=== PATIENT | female | born 1985 | race Two or more races ===

== ENCOUNTER → 2020-08-12 12:42 | Outpatient (BNVA) | payer OTHER, SELFPAY | PROVIDERS: PCP Nurse Practitioner; Visit Provider Surgery | DX: E66.01 Morbid (severe) obesity due to excess calories (principal); Z68.42 Body mass index [BMI] 45.0-49.9, adult | CPT/HCPCS: 99202 ==

== ENCOUNTER → 2020-08-29 08:21 | Outpatient (BNVA) | payer OTHER, SELFPAY | PROVIDERS: PCP Nurse Practitioner; Visit Provider Surgery | DX: E66.01 Morbid (severe) obesity due to excess calories (principal); Z68.42 Body mass index [BMI] 45.0-49.9, adult | CPT/HCPCS: 99212 ==

== ENCOUNTER 2020-09-08 10:36 | Outpatient (REF) | payer OTHER, SELFPAY ==
--- NOTE | ~2020-09-08 | XR_ITS ---
EXAMINATION: XR CHEST CLINICAL INFORMATION: Shortness of breath. COMPARISON: None TECHNIQUE: 2 views of the chest were obtained. FINDINGS: No significant abnormality is noted involving the heart, lungs, mediastinum, bony thorax or soft tissues. XR/XR chest 2V IMPRESSION: No acute cardiopulmonary process.
--- NOTE | 2020-09-08 11:04 | ECG_ITS ---
Test Reason : SOB Blood Pressure : / mmHG Vent. Rate : 066 BPM Atrial Rate : 066 BPM P-R Int : 136 ms QRS Dur : 084 ms QT Int : 390 ms P-R-T Axes : 004 031 -08 degrees QTc Int : 408 ms Normal sinus rhythm Normal ECG No previous ECGs available Referred By: Jesenia Chavarria Electronically Signed By:Radames Burnett
[2020-09-08 12:11] LABS: MANUAL DIFF FLAG SCAN; Monocytes Absolute Auto 0.6 X10*3/uL (0.1-1.2); SCAN SMEAR FLAG 1
[2020-09-08 12:13] LABS: Basophils Absolute Auto 0.1 X10*3/uL (0.0-0.2); Basophils Percent Auto 0.5 % (0-2); Eosinophils Absolute Auto 0.2 X10*3/uL (0.0-0.4); Eosinophils Percent Auto 2.3 % (0-4); Hematocrit 38.5 % (37-47); Hemoglobin 12.5 g/dl (12.0-16.0); Imm Gran Abs Auto 0.03 X10*3/uL (0.00-0.03); Imm Gran Pct Auto 0.3 % (0.0-0.4); Lymphocytes Percent Auto 20.2 % (20-40); Mean Corpuscular HGB Conc 32.5 g/dl (31.0-35.0); Mean Corpuscular Hemoglobin 25.6 pg (27.0-33.0); Mean Corpuscular Volume 78.9 fL (80-98); Mean Platelet Volume 12.7 fL (9.4-12.3); Monocytes Percent Auto 5.6 % (2-11); Neutrophils Absolute Auto 7.1 X10*3/uL (2.0-8.3); Neutrophils Percent Auto 71.1 % (45-73); Platelet Count 200 X10*3/uL (160-400); Red Blood Count 4.88 X10*6/uL (4.20-5.50); Red Cell Distribution Width 13.7 % (11.0-16.0)
[2020-09-08 12:19] LABS: PLT ABN DIST 1
[2020-09-08 12:20] LABS: Estimated Average Glucose 103 mg/dL; Hemoglobin A1c % 5.2 %
[2020-09-08 12:30] LABS: Alanine Aminotransferase 16 U/L (0-31); Albumin Level 4.4 g/dL (3.5-5.0); Alkaline Phosphatase 73 U/L (39-117); Anion Gap 12 (12-20); Aspartate Amino Transferase 16 U/L (5-31); Bilirubin Total 0.8 mg/dL (0.0-1.0); Blood Urea Nitrogen 16 mg/dL (9-16); C Reactive Protein 1.07 mg/dL (< or = 0.50); Calcium 9.6 mg/dL (8.4-10.2); Carbon Dioxide 23 mmol/L (22-29); Chloride 106 mmol/L (96-108); Cholesterol 180 mg/dL; Estimated Glomerular Filt Rate > 60; Glucose Fasting 77 mg/dL (60-99); HDL Cholesterol 43 mg/dL; Iron 124 mcg/dL (30-160); LDL Cholesterol Calculated 110 mg/dl; Percent Iron Saturation 32 % (15-50); Potassium 4.6 mmol/L (3.3-5.1); Sodium 136 mmol/L (135-145); Total Iron Binding Capacity 389 mcg/dL (228-428); Triglycerides 137 mg/dL; Unsaturated Iron Binding 265 ug/dL
[2020-09-08 12:33] LABS: Thyroid Stimulating Hormone 1.05 uIU/mL (0.32-4.0); Vitamin D 25-OH Total 15.6 ng/mL (>30)
[2020-09-08 12:34] LABS: Vitamin B12 581 pg/mL (200-900)
[2020-09-09 13:41] LABS: Calcium (PTHI) 9.3 mg/dL (8.6-10.2); PTHI 60 pg/mL (14-64)
[2020-09-11 17:27] LABS: Zinc 72 mcg/dL (60-130)
[2020-09-12 06:11] LABS: Vitamin B1 <6 nmol/L (8-30)
[2020-09-13 21:36] LABS: Vitamin A 39 mcg/dL (38-98)
== END 2020-09-08 10:37 | disposition home or self-care (01) ==
LOC: HO.LAB 10:36
PROVIDERS: PCP Nurse Practitioner; Visit Provider Surgery
DX: Z01.818 Encounter for other preprocedural examination (principal); R06.02 Shortness of breath; K91.2 Postsurgical malabsorption, not elsewhere classified; Z90.3 Acquired absence of stomach [part of]
CPT/HCPCS: 36415; 71046; 80053; 80061; 82306; 82607; 83036; 83540; 83970; 84425; 84443; 84590; 84630; 85025; 86140; 93005

== ENCOUNTER → 2020-09-12 08:14 | Outpatient (BNVA) | payer OTHER, SELFPAY | PROVIDERS: PCP Nurse Practitioner; Visit Provider Dietitian, Registered ==

== ENCOUNTER → 2020-09-27 08:37 | Outpatient (BNVA) | payer OTHER, SELFPAY | PROVIDERS: PCP Nurse Practitioner; Visit Provider Dietitian, Registered ==

== ENCOUNTER 2020-10-07 13:35 | Outpatient (REF) | payer OTHER, SELFPAY ==
[2020-10-08 14:47] LABS: H Pylori Breath Test DETECTED (NOT DETECTED)
== END 2020-10-07 13:36 | disposition home or self-care (01) ==
LOC: HO.LNP 13:35
PROVIDERS: PCP Nurse Practitioner; Referring Provider Nurse Practitioner; Visit Provider Surgery
DX: Z01.818 Encounter for other preprocedural examination (principal); E66.01 Morbid (severe) obesity due to excess calories; Z71.3 Dietary counseling and surveillance; Z79.899 Other long term (current) drug therapy; Z87.891 Personal history of nicotine dependence; Z68.42 Body mass index [BMI] 45.0-49.9, adult; Z11.0 Encounter for screening for intestinal infectious diseases
CPT/HCPCS: 83013; 99212

== ENCOUNTER → 2020-11-04 07:49 | Outpatient (BNVA) | payer OTHER, SELFPAY | PROVIDERS: PCP Nurse Practitioner; Visit Provider Dietitian, Registered ==

== ENCOUNTER 2020-11-07 13:55 | Outpatient (REF) | payer OTHER, SELFPAY ==
[2020-11-08 14:37] LABS: H Pylori Breath Test DETECTED (NOT DETECTED)
== END 2020-11-07 13:56 | disposition home or self-care (01) ==
LOC: HO.LNP 13:55
PROVIDERS: PCP Nurse Practitioner; Visit Provider Surgery
DX: Z01.818 Encounter for other preprocedural examination (principal); E66.01 Morbid (severe) obesity due to excess calories; Z68.42 Body mass index [BMI] 45.0-49.9, adult; A04.8 Other specified bacterial intestinal infections; Z71.3 Dietary counseling and surveillance
CPT/HCPCS: 83013; 99211; 99212